=== PATIENT | male | born 1980 | race Caucasian/White ===

== ENCOUNTER → 2021-09-01 | Outpatient (CLI) | payer BC, OTHER ==
--- NOTE | 2021-09-01 09:49 | Diagnostic Imaging Report ---
PROCEDURE: MRI lumbar spine. TECHNIQUE: Multiplanar, multisequence MRI of the lumbar spine was performed without contrast. INDICATION: Low back pain, lifting injury 2 months ago. No prior studies are available for comparison. Curvature and alignment of the lumbar spine is normal. Vertebral body heights are well-maintained. No geographic marrow lesion or acute compression fractures identified. There is some mild disc desiccation at L5-S1 compatible with degenerative disc disease. Remaining lumbar discs show normal height and signal intensity. The conus is unremarkable at T12-L1 level. T12-L1: Central canal and neural foramina are widely patent. L1-L2: The central canal and neural foramina are widely patent. L2-L3: Central canal and neural foramina are widely patent. L3-L4: There is some mild facet changes and ligamentous thickening. The central canal and neural foramina are widely patent. L4-L5: There is some ligamentous thickening and hypertrophic facet changes. Slight flattening of the ventral thecal sac is noted but central canal remains patent. There is some hoax-rt-edssagyx narrowing of the lateral recesses bilaterally. There is also pezy-jw-olbsjuqf bilateral neural foraminal narrowing. L5-S1: There is a wide based disc bulge which indents the thecal sac and produces significant narrowing of the central canal. There may be a separate left para-midline extruded disc fragment as well extending slightly caudal. This likely impinges upon the left S1 nerve root. There is significant narrowing of bilateral lateral recesses. There is also moderate bilateral neural foraminal stenosis. Paraspinous tissues are unremarkable. IMPRESSION: Lower lumbar spondylosis described level by level above. There is a prominent wide based disc bulge at L5-S1 with probable separate extruded fragment in the left para-midline. Findings do result in significant central canal as well as lateral recess and neural foraminal stenosis, as described. Dictated by: Dictated on workstation # [id number]
== END ==
LOC: RAD 07:50
PROVIDERS: ATTEND Family Medicine
DX: M47.26 Other spondylosis with radiculopathy, lumbar region (principal); M51.27 Other intervertebral disc displacement, lumbosacral region; M48.061 Spinal stenosis, lumbar region without neurogenic claudication; M48.07 Spinal stenosis, lumbosacral region
CPT/HCPCS: 72148